=== PATIENT | female | born 1960 | race Caucasian/White ===

== ENCOUNTER 2021-10-03 05:36 | Day surgery (SDC) | payer OTHER ==
[~2021-10-03] VITALS: Ht 163 cm; Wt 86.0 kg
[~2021-10-03 05:36] MED LIST: CLARITIN10 MG PO; ETODOLAC200 MG PO; IMODIUM2 MG PO; LEXAPRO20 MG PO; MOTRIN600 MG PO; PEPCID AC20 MG PO; PREDNISONE 20MG20 MG PO; ROBAXIN500 MG PO; SYMBICORT 80-10.2 GM INH; VENTOLIN (2.5 MG/3 M INH; [UNRECOGNIZED DRUG - OTHER] PO
[2021-10-03] MEDS ORDERED: ENTYVIO300 MG IV (06:09)
--- NOTE | 2021-10-03 12:53 | NUR ---
PT REQUESTED [facility]. FIRST APPT IS 10/06/21 @ 8:00 AM [facility] TO DELIVER A RW AND 06/14 UPON DISCHARGE. CHOICE FORM SIGNED AND COPY GIVEN.
[2021-10-04 07:06] LABS: BASOPHIL 0.2 % (0-2); EOSINOPHIL 0.3 % (0-5); HCT 25.5 % (37.0-47.0); HGB 8.2 g/dl (12.5-16.0); LYMPHOCYTE 11.7 % (15-48); MCH 31.5 pg (25.0-31.0); MCHC 32.2 g/dL (32.0-36.0); MCV 98.1 fL (78.0-100.0); MONOCYTE 13.9 % (0-12); MPV 9.6 fL (6.0-9.5); NEUTROPHIL 72.9 % (41-80); NRBC 0; PLT 211 K/uL (150-400); RDW 13.9 % (11.5-14.0)
[2021-10-04 07:16] LABS: BUN/CREAT RATIO (CALC) 15.5 RATIO; CREATININE 0.84 mg/dL (0.51-0.95); POTASSIUM 3.9 mmol/L (3.5-5.1)
[2021-10-04] MEDS ORDERED: FEOSOL325 MG PO (08:14)
[2021-10-04] MEDS ORDERED: XARELTO10 MG PO (08:14)
--- NOTE | 2021-10-04 10:34 | NUR ---
LAYNE NEWELL PT DOES NOT HAVE A COPAY FOR HER XARELTO.
[2021-10-04] MEDS ORDERED: ONDANSETRON ODT4 MG PO (13:19)
== END 2021-10-04 14:14 | disposition home or self-care (01) ==
LOC: FAS 05:36 → FMS 08:59 → FAS 10-04 14:14
PROVIDERS: Legal Medicine
DX: M17.12 Unilateral primary osteoarthritis, left knee (principal); G89.29 Other chronic pain; M21.162 Varus deformity, not elsewhere classified, left knee; J45.909 Unspecified asthma, uncomplicated; K21.9 Gastro-esophageal reflux disease without esophagitis; F41.9 Anxiety disorder, unspecified; D64.9 Anemia, unspecified; Z79.899 Other long term (current) drug therapy
CPT/HCPCS: 36415; 73560; 80048; 85025; 86850; 86900; 86901; 93005; 94010; 94640; 94760; 94762; 97110; 97116; 97161; 97166; C1713; C1776; J0171; J0697; J1100; J1170; J1885; J2250; J2370; J2405; J2704; J2795; J3010; J7120

== ENCOUNTER → 2021-11-07 | Day surgery (SDC) | payer OTHER ==
[~2021-11-07] VITALS: Ht 163 cm; Wt 80.1 kg
[~2021-11-07] MED LIST changes: +ASPIRIN325 MG PO; +ENTYVIO300 MG IV; +FEOSOL325 MG PO; +ONDANSETRON ODT4 MG PO; +VIBRAMYCIN100 MG PO; +XARELTO10 MG PO
[2021-11-07 13:20] LABS: HCT 32.6 % (37.0-47.0); MCH 29.3 pg (25.0-31.0); MCHC 30.7 g/dL (32.0-36.0); MCV 95.6 fL (78.0-100.0); RBC 3.41 M/uL (4.20-5.40); RDW 14.1 % (11.5-14.0); WBC 9.3 K/uL (4.0-10.5)
== END | disposition home or self-care (01) ==
LOC: FAS 11:16
PROVIDERS: Legal Medicine
DX: T81.31XA Disruption of external operation (surgical) wound, not elsewhere classified, initial encounter (principal); Z79.82 Long term (current) use of aspirin; Z79.899 Other long term (current) drug therapy; Z88.0 Allergy status to penicillin; Z88.1 Allergy status to other antibiotic agents; Z88.2 Allergy status to sulfonamides; Z88.8 Allergy status to other drugs, medicaments and biological substances
CPT/HCPCS: 36415; 87070; 87075; 87077; 87186; 87205; J1170; J2250; J2704; J2795; J3010; J3260; J7120